=== PATIENT | female | born 1965 | race Caucasian/White ===

== ENCOUNTER → 2018-06-11 | Outpatient (CLI) | payer OTHER ==
[~2018-06-11] MED LIST: CHOL200052 PO; HYDR200T72 PO; IRON PO; MAGN100T6 PO; MULT-516 PO; NAPR-685 PO; OMEP-110 PO; TURMERIC PO; VITAMIN B12 PO
== END | disposition home or self-care (01) ==
LOC: STAR 07:52
PROVIDERS: ATTEND Otolaryngology
DX: Z02.9 Encounter for administrative examinations, unspecified (principal)

== ENCOUNTER 2018-06-18 05:13 | Day surgery (SDC) | payer OTHER ==
[~2018-06-18] VITALS: Ht 165.1 cm; Wt 70.3 kg
[2018-06-18] MEDS ORDERED: LACTATED RINGERS 1,000 ML IV SCH (06:00)
[2018-06-18] MEDS ORDERED: OXYMETAZOLINE NASAL SPRAY 0.05%, 15ML ONE (06:05)
[2018-06-18 06:17] LABS: HCG UR SG 1.025 (1.003-1.030)
[2018-06-18] MEDS ORDERED: MIDAZOLAM 1 MG/ML, 2ML ONE (06:40)
[2018-06-18] MEDS ORDERED: FENTANYL PF 250 MCG/5ML ONE (06:40)
[2018-06-18] MEDS ORDERED: ROCURONIUM 10 MG/ML,10ML ONE (07:07)
[2018-06-18] MEDS ORDERED: PROPOFOL 10 MG/ML, 20ML ONE (07:07)
[2018-06-18] MEDS ORDERED: hydrALAzine 20 MG/ML, 1ML IV PRN (08:00)
[2018-06-18] MEDS ORDERED: LABETALOL 5MG/ML, 20ML IV PRN (08:00)
[2018-06-18] MEDS ORDERED: ALBUTEROL SULFATE 2.5 MG/3 ML NPPB PRN (08:00)
[2018-06-18] MEDS ORDERED: PROMETHAZINE 25 MG/ML, 1ML IV PRN (08:00)
[2018-06-18] MEDS ORDERED: ACETAMINOPHEN 325 MG TABLET PO PRN (08:00)
[2018-06-18] MEDS ORDERED: HYDROmorphone 1 MG/ML, 1ML IV PRN (08:00)
[2018-06-18] MEDS ORDERED: LORazepam 2 MG/ML, 1ML IVPush PRN (08:00)
[2018-06-18] MEDS ORDERED: FENTANYL PF 100 MCG/2ML IV PRN (08:00)
[2018-06-18] MEDS ORDERED: OXYcodone 5 MG/5 ML ORAL.SOL UDC PO PRN (08:00)
== END 2018-06-18 09:25 | disposition home or self-care (01) ==
LOC: OUT 05:13
PROVIDERS: ATTEND Otolaryngology
DX: J38.1 Polyp of vocal cord and larynx (principal); J38.3 Other diseases of vocal cords; Z72.89 Other problems related to lifestyle
CPT/HCPCS: 31536; 81025; 88305; J2250; J3010; J7120; J2704